=== PATIENT | female | born 1995 | race Caucasian/White ===

== ENCOUNTER 2024-12-31 11:39 | Outpatient (CLI) | payer BC, SELFPAY ==
--- NOTE | ~2024-12-31 | US_ITS ---
EXAMINATION: US OB /maternal detail DATE: 12/31/2024 23:27 EXECUTIVE STAFF ASSISTANT INDICATION: Anatomy scan TECHNIQUE: Real-time transabdominal obstetric ultrasound. FINDINGS: 2 para 1 There is a single intrauterine gestation in vertex presentation. The placenta is anterior, located 5.4 cm from the cervix The cervix measures 4.2 cm in length. cardiac activity and movement is noted with a heart rate of 165 beats per minute. Anatomic parameters are as follows The bladder is visualized and is unremarkable. A three-vessel cord is present. The cord inserts on the midline. Bilateral kidneys are present without hydronephrosis. The diaphragm is poorly visualized for which follow-up examination is needed. The cervical, thoracic and lumbar spines are covered in their entirety. choroid plexi are visualized, and unremarkable. Lateral ventricles are visualized measuring 7 and 7.4 mm, respectively. The falx is visualized. The cerebellum is visualized measuring 21.6 mm, and is sonographically unremarkable. The cisterna magna measures 4 mm in anterior to posterior dimension (normal measurement is 2 to 10 mm ). The nuchal fold measures 3.7 mm (greater than 6 mm is considered abnormal). Cine of the four-chamber heart is visualized and is anatomic. Cine evaluation of both the right and left ventricular outflow tracts are identified and are unremark able. Limited views of the arms, hands, legs and feet were performed and appear grossly unremarkable. Limited evaluation of the upper lip and nose to confirm their continuity is appreciated on the subm itted images for which follow-up examination is needed. The following biometric data were obtained: Biparietal diameter (BPD): 4.7 cm; head circumference (HC): 17.2 cm; abdominal circumference (AC): 15.7 cm; femur length (FL): 3.1 cm. These measurements are concordant. Estimated weight is 339.5 g +/- 51 g, which correlates with the 58th percentile when 05/19/2025 i s used as estimated date of delivery. As single measurements, these parameters are each equal to the following estimated gestational ages: BPD: 20 weeks 2 days. HC: 19 weeks 5 days. AC: 20 weeks 6 days. FL: 19 weeks 4 days. estimated gestational age based solely on measurements from this exam is 20 weeks 1 day +/- 1 w algaaciq . days. IMPRESSION: Single intrauterine gestation with an approximate gestational age of 20 weeks and 1 day. Estimated du e date by ultrasound is 05/19/2025 The diaphragm is poorly visualized for which follow-up examination is needed. Limited evaluation of the upper lip and nose to confirm their continuity is appreciated on the subm itted images for which follow-up examination is needed. Reviewed, dictated and finalized at location A. UTIVE STAFF ASSISTANT IMPRESSION: Single intrauterine gestation with an approximate gestational age of 20 weeks a nd 1 day. Estimated due date by ultrasound is 05/19/2025 The diaphragm is poorly visualized for which follow-up examination is n eeded. Limited evaluation of the upper lip and nose to confirm their continuity is a ppreciated on the submitted images for which follow-up examination is needed.
== END 2024-12-31 11:40 | disposition home or self-care (01) ==
PROVIDERS: PCP Advanced Practice Midwife; Visit Provider Advanced Practice Midwife
DX: Z36.9 Encounter for antenatal screening, unspecified (principal); Z3A.20 20 weeks gestation of pregnancy
CPT/HCPCS: 76805

== ENCOUNTER 2025-01-29 11:12 | Outpatient (CLI) | payer BC, SELFPAY ==
--- NOTE | ~2025-01-29 | US_ITS ---
Follow-up OBSTETRIC ULTRASOUND Ordering provider: Judy CrossJanice History: . F/U views of diaphragm and face . Comparison: December 31, 2024 FINDINGS: MATERNAL CERVIX: Measures 3.5 cm which is normal (normal is equal to or greater than 3.0 cm). PRESENTATION: Vertex. Longitudinal lie. PLACENTAL LOCATION: Anterior No previa. Distance from the placenta to the cervix is 7.7 cm. HEART RATE: 148 bpm (normal is between 110 to 160 bpm). AMNIOTIC FLUID INDEX: Subjectively normal OTHER: Maternal ovaries not visualized. The upper lip and the diaphragm are demonstrated. -- BIOMETRICS: CI: 77.46. BPD: 59.8 mm = 24 weeks 3 days HC: 222.9 mm = 24 weeks 2 days FL: 42.5 mm = 23 weeks and 6 days AC: 198.7 mm = 24 weeks 4 days HC/AC: 1.12 FL/BPD: 71.07 FL/AC: 21.39 EFW: 677.26 gm. IMPRESSION: Normal upper lip and diaphragm. Single live fetus of Vertex presentation. Ultrasound age is 24 weeks 2 days ARON is May 19, 2025 Reviewed, dictated and finalized at location A.
== END 2025-01-29 11:13 | disposition home or self-care (01) ==
PROVIDERS: PCP Advanced Practice Midwife; Visit Provider Obstetrics & Gynecology
DX: Z36.9 Encounter for antenatal screening, unspecified (principal)
CPT/HCPCS: 76816